=== PATIENT | female | born 1940 | race Caucasian/White ===

== ENCOUNTER 2018-03-09 14:24 | Outpatient (CLI) | payer OTHER ==
[~2018-03-09 14:24] MED LIST: ALBUTEROL SULFAT2 MG PO; LEXAPRO5 MG PO
== END 2018-03-09 14:26 | disposition home or self-care (01) ==
LOC: RAD 14:24
DX: M15.0 Primary generalized (osteo)arthritis (principal)

== ENCOUNTER → 2018-07-24 | Outpatient (CLI) | payer OTHER | END | disposition home or self-care (01) | LOC: RAD 14:24 | DX: M16.0 Bilateral primary osteoarthritis of hip (principal) ==

== ENCOUNTER → 2018-09-06 | Outpatient (CLI) | payer OTHER | END | disposition home or self-care (01) | LOC: NUCLEAR 07:53 | DX: I82.441 Acute embolism and thrombosis of right tibial vein (principal); I73.89 Other specified peripheral vascular diseases ==

== ENCOUNTER 2021-01-09 09:11 | Outpatient (CLI) | payer OTHER | END 2021-01-09 09:15 | disposition home or self-care (01) | LOC: PPH VACUNA 09:11 | PROVIDERS: ATTEND Emergency Medicine Pediatric Emergency Medicine | DX: Z23 Encounter for immunization (principal) ==

== ENCOUNTER 2021-08-20 08:00 | Outpatient (CLI) | payer OTHER | END 2021-08-20 08:30 | disposition home or self-care (01) | LOC: PPH VACUNA 08:00 | PROVIDERS: ATTEND Emergency Medicine Pediatric Emergency Medicine | DX: Z23 Encounter for immunization (principal) ==